=== PATIENT | male | born 2000 | race Caucasian/White ===

== ENCOUNTER 2021-10-27 11:00 | Emergency (ER) | payer OTHER, SELFPAY ==
[2021-10-27 11:24] VITALS: BP 124/69; PULSE 100; RESP 18; TEMP 36.6; O2SAT 100
--- NOTE | 2021-10-27 12:05 | ED.URI ---
HPI - URI/Sore Throat General Chief Complaint: Upper Respiratory Infection Stated Complaint: Cough,Headache,Sinus Pressure Time Seen by Provider: 10/27/21 12:05 Source: patient and RN notes reviewed Mode of arrival: ambulatory Limitations: no limitations History of Present Illness HPI Narrative: 21-year-old male presented for complaint of cough for 2 weeks. He endorses headache, and just feeling unwell. States he had a prolonged episode of vomiting about 2 days ago which has since resolved. Denies shortness of breath, wheezing, ear pain, fever or chills. He has been taking Mucinex and Tylenol for symptoms. Endorses sick contacts. He is not vaccinated for flu. He is not boosted for Covid. He took a negative home Covid test 3 days ago. MD elicited complaint: cough Related Data Allergies Allergy/AdvReac Type Severity Reaction Status Date / Time bupropion [From Wellbutrin] AdvReac Mild Hives Verified 10/27/21 12:05 Review of Systems Review of Systems: CONSTITUTIONAL: denies malaise, chills, sweats, fever EYES: Denies visual changes, redness, or discharge ENT: Reports rhinorrhea, congestion, sinus pain CARDIOVASCULAR: Denies chest pain, palpitations, edema RESPIRATORY: Reports cough, post nasal drainage. Denies dyspnea GASTROINTESTINAL: Denies abdominal pain, nausea, vomiting, diarrhea SKIN: Denies rash or itching MUSCULOSKELETAL: denies myalgia NEUROLOGIC: Denies headache Exam Narrative: GENERAL: Ill-appearing, nontoxic HEAD: Normocephalic EYES: PERRLA, conjunctivae clear ENT: Mucous membranes moist. TM pearly valerio with dull light reflex bilaterally; no tragal tenderness. Oropharynx erythematous, tonsils enlarged without lesions or exudate, no drooling, no hoarseness, no trismus, uvula midline. No tripod positioning, muffled voice, soft palate or pharyngeal wall bulging NECK: Supple. No lymphadenopathy CHEST: Clear to auscultation, breath sounds equal. No wheezing, rhonchi, rales, or stridor. No respiratory distress, speaks in full sentences. HEART: Regular rate and rhythm. No murmur heard. SKIN: Warm, dry, no rash. NEURO: Alert and oriented x3. PSYCH: Normal mood and affect Course Course Emergency Course: Patient is aware of diagnosis, understands and agrees to treatment plan. Anticipatory guidance given. Patient agrees to follow-up as directed and is aware of reasons to seek care at the emergency department. Portions of this record may have been created with voice recognition software Level of Care: Express Care Visit Vital Signs Vital signs: Vital Signs Temperature 97.9 F 10/27/21 11:24 Pulse Rate 100 10/27/21 11:24 Respiratory Rate 18 10/27/21 11:24 Blood Pressure 124/69 10/27/21 11:24 Pulse Oximetry 100 10/27/21 11:24 Temperature 97.9 F 10/27/21 11:24 Pulse Rate 100 10/27/21 11:24 Respiratory Rate 18 10/27/21 11:24 Blood Pressure 124/69 10/27/21 11:24 Pulse Oximetry 100 10/27/21 11:24 reviewed MDM - URI/Sore Throat MDM Narrative Medical decision making narrative: flu and covid negative sx c/w uri Differential Diagnosis Differential diagnosis: Likely upper respiratory infection, sinusitis and viral infection Lab Data Attestation: I reviewed the patient's lab results. Labs: Lab Results 10/27/21 Range/Units 12:20 POC SARS CoV-2 Ag Negative (Negative) Influenza A Screen Negative Reference Range: Negative Influenza B Screen Negative Reference Range: Negative Discharge Plan Discharge Clinical Impression: Upper respiratory infection Qualifiers: URI type: unspecified URI Qualified Code(s): J06.9 - Acute upper respiratory infection, unspecified Patient Disposition: Home, Self-Care Condition: Stable Instructions: Antibiotic Form Additional Instructions: Take antibiotic as directed Recommend Flonase spray and Zyrte
== END 2021-10-27 12:52 | disposition home or self-care (01) ==
PROVIDERS: Emergency Provider Nurse Practitioner Family; PCP Specialist
DX: J06.9 Acute upper respiratory infection, unspecified (principal); Z20.822 Contact with and (suspected) exposure to COVID-19
CPT/HCPCS: 87426; 87804; 99213; C9803; G0463